=== PATIENT | female | born 1940 | race Caucasian/White ===

== ENCOUNTER 2017-01-07 22:38 | Emergency (ER) | payer MEDICARE, MEDICAID ==
[~2017-01-07 22:38] MED LIST: COZAAR25 MG PO; COZAAR50 MG PO; ECO81 PO; HYDROCHLOROTH12.5 M2 PO; LAC PO; LIPI20 PO; MACROBID100 MG PO; METFORMIN HCL500 MG PO; METOPROLOL SUCC25 M1 PO; METOPROLOL TART25 M1 PO; PRILOSEC20 MG PO; ZANTAC 150150 MG PO
[2017-01-07 23:04] LABS: BASOPHIL % 0.3 % (0-2); PLATELET COUNT 245 x10^3mcL (130-400); RED CELL DISTRIBUTION WIDTH 12.8 % (11.5-14.5)
[2017-01-07 23:13] LABS: CARBON DIOXIDE 30.2 mmol/L (21-32); CHLORIDE SERUM 103 mmol/L (98-107); CREATININE SERUM 0.7 mg/dL (0.6-1.0); GLUCOSE SERUM 141 mg/dL (74-106); POTASSIUM SERUM 4.1 mmol/L (3.5-5.1); SODIUM SERUM 139 mmol/L (136-145)
[2017-01-07 23:19] LABS: ALBUMIN 3.9 g/dL (3.4-5.0); ALKALINE PHOSPHATASE 111 U/L (46-116); ALT/SGPT 26 U/L (14-59); AST/SGOT 20 U/L (15-37); BILIRUBIN TOTAL 0.4 mg/dL (0.20-1.00); TOTAL PROTEIN, SERUM 7.5 g/dL (6.4-8.2)
[2017-01-08 00:28] VITALS: BP 149/89
== END 2017-01-08 00:28 | disposition home or self-care (01) ==
LOC: ED 22:38
PROVIDERS: Emergency Medicine
DX: I10 Essential (primary) hypertension (principal); E11.9 Type 2 diabetes mellitus without complications; Z79.84 Long term (current) use of oral hypoglycemic drugs
CPT/HCPCS: 83880; Q0092